=== PATIENT | male | born 1990 | race Caucasian/White ===

== ENCOUNTER 2021-06-24 15:05 | Emergency (ER) | payer OTHER ==
[~2021-06-24] VITALS: Ht 177.8 cm; Wt 88.0 kg
[2021-06-24 15:29] VITALS: BP 134/89
--- NOTE | 2021-06-24 15:50 | PHYS DOC ---
Past History Past Surgical History: Other Additional Past Surgical Histo: sinus surgery Alcohol Use: Occasionally General Adult EDM: Chief Complaint: BACK PAIN OR INJURY HPI: HPI: Patient is a 31-year-old male who presents to the emergency department for midline low back pain that occurred today after he was lifting at the gym. Patient reports his pain is 5 out of 10. He states that when he tries to straighten his back up he has increased pain and it is 8 out of 10. No t reatment prior to arrival. Patient denies any loss of bowel or bladder, saddle anesthesias, radiation of pain. Review of Systems: Review of Systems: GI: See HPI : See HPI Musculoskeletal: See HPI Neurologic: See HPI Allergies: Allergies: Allergies Coded Allergies Type Severity Reaction Last Updated Verified No Known Drug Allergies 06/24/21 No Physical Exam: PE: Constitutional: Well developed, well nourished, no acute distress, non-toxic appearance. [] HENT: Normocephalic, atraumatic, bilateral external ears normal, oropharynx moist, no oral exudates, nose normal. [] Eyes: PERRLA, EOMI, conjunctiva normal, no discharge. [] Neck: Normal range of motion, no bony spinal tenderness, supple, no stridor. [] Cardiovascular normal peripheral perfusion Lungs & Thorax: Normal work of breathing, tachypnea Abdomen: Soft and flat Skin: Warm, dry, no erythema, no rash. [] Back: Midline low back tenderness, no obvious deformity no CVA tenderness. [] Extremities: No tenderness, no cyanosis, no clubbing, ROM intact, no edema. [] Neurologic: Alert and oriented X 3, normal motor function, normal sensory function, no focal deficits noted. [] Psychologic: Affect normal, judgement normal, mood normal. [] Current Patient Data: Vital Signs: Vital Signs Date Time Temp Pulse Resp B/P (MAP) Pulse Ox O2 Delivery O2 Flow Rate FiO2 06/24/21 15:29 97.2 63 18 134/89 (104) 100 Room Air EKG: EKG: [] Radiology/Procedures: Radiology/Procedures: []PROCEDURE: CT LUMBAR SPINE WO CONTRAST EXAM: CT lumbar spine without IV contrast CLINICAL HISTORY:Reason: low back pain after deadlifting / Spl. Instructions: / History: COMPARISON: None available. TECHNIQUE: Helical CT was performed through the lumbar spine. Axial, coronal and sagittal reformatted images were generated. PQRS compliance statement - One or more of the following individualized dose reduction techniques were utilized for this study: 1. Automated exposure control 2. Adjustment of the mA and/or kV according to patient size 3. Use of iterative reconstruction technique FINDINGS: Vertebral body heights are preserved. Mild L5-S1 disc height loss. Straightening of the normal lumbar lordosis. No spondylolisthesis. No acute fracture. Visualized retroperitoneum is unremarkable. IMPRESSION: 1. Negative acute fracture or subluxation. Electronically signed by: Jas Mckeon MD (06/24/2021 4:14 PM) [facility] DICTATED AND SIGNED BY: JAS MCKEON MD DATE: 06/24/21 1610 CC: IRIS SCHNEIDER APRN; AQUILINO JAEGERP- ~ Heart Score: C/O Chest Pain: N/A Risk Factors: Risk Factors: DM, Current or recent (<one month) smoker, HTN, HLP, family history of CAD, obesity. Risk Scores: Score 0 - 3: 2.5% MACE over next 6 weeks - Discharge Home Score 4 - 6: 20.3% MACE over next 6 weeks - Admit for Clinical Observation Score 7 - 10: 72.7% MACE over next 6 weeks - Early Invasive Strategies Course & Med Decision Making: Course & Med Decision Making Pertinent Labs and Imaging studies reviewed. (See chart for details) [] Presents to the emergency department for midline low back pain after lifting today. CT imaging was performed that showed. Patient treated with Toradol and muscle relaxant. Patient reports improvement in symptoms following treatment in the emergency department. He will be discharged home with pain medication. His CT imaging did not show any acute findings. No cauda equina symptoms. I discussed with patient all findings and diagnostic testing as well as the need to follow-up with PCP for further evaluation and treatment or return to the ER if any new or worsening symptoms. Strict return precautions were also discussed at length. Patient voiced understanding and agreement with the plan. Patient is hemodynamically stable at the time of disposition. Dragon Disclaimer: Dragon Disclaimer: This electronic medical record was generated, in whole or in part, using a voice recognition dictation system. Departure Departure: Impression: Primary Impression: Back pain Qualified Codes: M54.50 - Low back pain, unspecified Disposition: 01 HOME / SELF CARE / HOMELESS Condition: GOOD Referrals: AQUILINO JAEGERP-BC (PCP) Patient Instructions: Back Pain, Adult Additional Instructions: You were seen in the emergency department today for back pain. Imaging was performed of your spine that showed no acute fractures. If you continue to have pain, you may need to have an MRI of your back which can be obtained by following up with your primary care provider. You are being discharged home with a muscle relaxer. This medication may cause sedation do not take need to be alert, driving a vehicle or with alcohol. You can also take ibuprofen or naproxen for mild pain. Follow-up with your primary care provider within 2 days for recheck. Return to the emergency department if you develop worsening of your pain, inability to bear weight or walk, loss of bowel or bladder, numbness or tingling in your groin or down your legs. Scripts Cyclobenzaprine Hcl (CYCLOBENZAPRINE HCL) 5 Mg Tablet 1 TAB PO TID for muscle spasm for 7 Days, #21 TAB 0 Refills Prov: IRIS SCHNEIDER APRN 06/24/21 IRIS SCHNEIDER APRN June 24, 2021 15:50
[2021-06-24] MEDS ORDERED: KETOROLAC 60 MG/2 ML VIAL. IM ONE (16:00)
[2021-06-24] MEDS ORDERED: ORPHENADRINE CITRATE 60 MG/2 ML VIAL. IM ONE (16:00)
--- NOTE | 2021-06-24 16:17 | RAD ---
EXAM: CT lumbar spine without IV contrast CLINICAL HISTORY:Reason: low back pain after deadlifting / Spl. Instructions: / History: COMPARISON: None available. TECHNIQUE: Helical CT was performed through the lumbar spine. Axial, coronal and sagittal reformatted images were generated. PQRS compliance statement - One or more of the following individualized dose reduction techniques wer e utilized for this study: 1. Automated exposure control 2. Adjustment of the mA and/or kV according to patient size 3. Use of iterative reconstruction technique FINDINGS: Vertebral body heights are preserved. Mild L5-S1 disc height loss. Straightening of the normal lumbar lordosis. No spondylolisthesis. No acute fracture. Visualized retroperitoneum is unremarkable. IMPRESSION: 1. Negative acute fracture or subluxation. Electronically signed by: Jas Mckeon MD (06/24/2021 4:14 PM) [facility]
[2021-06-24 17:08] LABS: BACTERIA,URINE 0 /HPF (0-FEW); CLARITY,URINE CLEAR; COLOR,URINE YELLOW; GLUCOSE,URINE NEG (NEG); NITRITE,URINE NEG (NEG); RBC,URINE 0 /HPF (0-2); UROBILINOGEN,URINE 0.2 mg/dL (0.2 mg/dL); WBC,URINE 0 /HPF (0-4)
[2021-06-24] MEDS ORDERED: HYDR-2155 PO ×2 (17:14→17:16)
[2021-06-24] MEDS ORDERED: CYCL5TAB PO ×2 (17:17→17:40)
== END 2021-06-24 17:37 | disposition home or self-care (01) ==
LOC: ER 15:05
DX: M54.59 Other low back pain (principal)
CPT/HCPCS: 72131; 81001; 96372; 99284; J1885; J2360